=== PATIENT | male | born 1980 | race Two or more races ===

== ENCOUNTER 2018-07-09 14:55 | Emergency (ER) | payer OTHER ==
[~2018-07-09] VITALS: Ht 180.3 cm; Wt 99.8 kg
[~2018-07-09 14:55] MED LIST: COZAAR50 MG PO; FLONASE16 GM NS; GILTUSS TR TAB1 EACH PO; MICARDIS40 MG PO; TRILIPIX135 MG PO; ZYRTEC10 MG PO
[2018-07-09] MEDS ORDERED: LOSARTAN POTASS50 MG (15:11)
== END 2018-07-09 16:18 | disposition home or self-care (01) ==
LOC: ER 14:55
DX: R07.89 Other chest pain (principal); M62.838 Other muscle spasm

== ENCOUNTER 2021-04-01 08:00 | Outpatient (CLI) | payer OTHER ==
[~2021-04-01 08:00] MED LIST changes: +LOSARTAN POTASS50 MG
== END 2021-04-01 08:30 | disposition home or self-care (01) ==
LOC: PPH VACUNA 08:00
PROVIDERS: ATTEND Emergency Medicine Pediatric Emergency Medicine
DX: Z23 Encounter for immunization (principal)